=== PATIENT | male | born 1940 | race Two or more races ===

== ENCOUNTER 2018-03-20 17:51 | Emergency (ER) | payer MEDICAID, MEDICARE ==
--- NOTE | 2018-03-20 18:18 | ED ---
Dizziness - HPI Summary HPI Summary: This is Denise loja, documenting for attending Hill Price MD. 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 He reports recent increasing in weakness and fatigue. Patient reports anxiety and frequent urination last evening that is currently resolved. Patient reports similar symptoms with previous bladder infections. I, Dr. Price personally performed the services described in this documentation as scribed in my presence and it is both accurate and complete. - History Of Current Complaint Chief Complaint: EDGeneral Stated Complaint: LETHARGIC Time Seen by Provider: 03/20/18 17:58 Hx Obtained From: Patient, EMS Timing: Minutes Character: Dizzy Associated Signs And Symptoms: Positive: Other: - fatigue, weakness, frquent urination - Allergies/Home Medications Allergies/Adverse Reactions: Allergies Allergy/AdvReac Type Severity Reaction Status Date / Time MS Atorvastatin Allergy Intermediate Flushing Verified 03/20/18 20:03 [Atorvastatin] PMH/Surg Hx/FS Hx/Imm Hx Cardiovascular History: Reports: Hx Coronary Artery Disease, Hx Hypercholesterolemia, Hx Myocardial Infarction Denies: Hx Pacemaker/ICD GI History: Reports: Other GI Disorders - peptic ulcer disease History: Reports: Hx Benign Prostatic Hyperplasia Sensory History: Reports: Hx Contacts or Glasses Denies: Hx Hearing Aid Opthamlomology History: Reports: Hx Contacts or Glasses Psychiatric History: Denies: Hx Panic Disorder - Surgical History Surgery Procedure, Year, and Place: IN WITH STENT. MULTIPLE HERNIA REPAIRS, l side rib repair, r femur rodding Infectious Disease History: No Infectious Disease History: Denies: Traveled Outside the [place] in Last 30 Days - Family History Known Family History: Positive: Hypertension - Social History Alcohol Use: None Substance Use Type: Reports: None Smoking Status (MU): Never Smoked Tobacco Review of Systems Positive: Fatigue. Negative: Fever, Chills Negative: Erythema Negative: Sore Throat Negative: Chest Pain Negative: Shortness Of Breath, Cough Negative: Abdominal Pain, Vomiting, Diarrhea, Nausea Positive: frequency. Negative: dysuria, hematuria Negative: Myalgia, Edema Negative: Rash Neurological: Other - dizziness All Other Systems Reviewed And Are Negative: Yes Physical Exam Triage Information Reviewed: Yes Vital Signs On Initial Exam: Initial Vitals Temp Pulse Resp BP Pulse Ox 98.6 F 80 18 180/98 98 03/20/18 17:59 03/20/18 17:59 03/20/18 17:59 03/20/18 17:59 03/20/18 17:59 Vital Signs Reviewed: Yes Diagnostics - Vital Signs Vital Signs Temp Pulse Resp BP Pulse Ox 03/20/18 17:59 98.6 F 80 18 180/98 98 - Laboratory Result Diagrams: 03/20/18 18:37 03/20/18 18:37 Lab Statement: Any lab studies that have been ordered have been reviewed, and results considered in the medical decision making process. - Radiology CXR Radiology Interpretation Completed By: Radiologist - No evidence for acute intrathoracic disease. ED Physician has reviewed this report. Discharge - Sign-Out/Discharge Documenting (check all that apply): Patient Departure - Discharge Plan Condition: Stable Disposition: HOME Prescriptions: Cephalexin CAP* [Keflex CAP*] 500 mg PO QID #28 cap Patient Education Materials: Urinary Retention in Men (ED) Referrals: Vijay Earl MD [Medical Doctor] - 3 Days Thaddeus Acuna MD [Primary Care Provider] - 2 Days Additional Instructions: RETURN TO THE EMERGENCY DEPARTMENT FOR CHANGING OR WORSENING SYMPTOMS.
[2018-03-20 18:48] LABS: ABS Basophils 0.1 10^3/ul (0-0.2); ABS Eosinophils 0 10^3/ul (0-0.6); ABS Lymphocytes 0.5 10^3/ul (1.0-4.8); ABS Monocytes 0.5 10^3/ul (0-0.8); ABS Neutrophils 4.5 10^3/ul (1.5-7.7); ABS Nucleated RBC 0 10^3/ul; Eosinophil % 0 % (0-6); Hematocrit 49 % (42-52); Hemoglobin 17.3 g/dl (14.0-18.0); Lymphocyte % 9.6 % (25-47); Mean Corpuscular HGB Conc 35 g/dl (31-36); Mean Corpuscular Hemoglobin 34 pg (27-31); Mean Corpuscular Volume 96 fL (80-94); Mean Platelet Volume 7.2 um3 (7.4-10.4); Nucleated Red Blood Cells % 0; Platelet Count 210 10^3/ul (150-450); Red Blood Count 5.13 10^6/ul (4.00-5.40); Red Cell Distribution Width 14 % (10.5-15); White Blood Count 5.6 10^3/ul (3.5-10.8)
[2018-03-20 18:49] LABS: Urine Appearance Clear; Urine Blood 2+ (Negative); Urine Color Straw; Urine Ketones Negative (Negative); Urine Protein Negative (Negative); Urine Red Blood Cell 3+(>10/hpf) (Absent); Urine Specific Gravity 1.006 (1.010-1.030); Urine Urobilinogen Negative (Negative); Urine White Blood Cell Trace(0-5/hpf) (Absent)
[2018-03-20 18:56] LABS: INR 0.97 (0.77-1.02)
--- NOTE | 2018-03-20 19:00 | RAD ---
Indication: Increased weakness lethargy over the past few weeks. Sepsis. Comparison: November 07, 2014 Technique: Upright AP 1832 hours Report: The extreme of the LEFT costophrenic angle is incompletely included in the [id number]. No focal pulmonary lesion, compelling alveolar consolidation, pleural effusion, pneumothorax. The heart, pulmonary vasculature, and mediastinal contours are unremarkable. Negative for free air under the diaphragm. IMPRESSION: #. No evidence for acute intrathoracic disease.
[2018-03-20 20:18] LABS: EGFR Non-African American 76.5 (>60)
[2018-03-20] MEDS ORDERED: Acetaminophen TAB* 325 MG PO ONE (20:44)
[2018-03-20] MEDS ORDERED: Cephalexin CAP* 500 MG PO ONE (20:44)
--- NOTE | 2018-03-20 21:27 | ED ---
Back Pain - HPI Summary HPI Summary: This is Denise loja, documenting for attending Hill Price MD. This patient is a 77 year old M BIBA to [facility] with a chief complaint of back pain and was unable to stand. He reports recent increasing in weakness and fatigue. Patient reports anxiety, urinary incontinence, and frequent urination last evening that is currently resolved. Patient reports similar symptoms with previous bladder infections. I, Dr. Price personally performed the services described in this documentation as scribed in my presence and it is both accurate and complete. - History of Current Complaint Chief Complaint: EDGeneral Stated Complaint: LETHARGIC Time Seen by Provider: 03/20/18 17:58 Hx Obtained From: Patient, EMS Onset/Duration: Lasting Hours Timing: Constant Pain Intensity: 0 Aggravating Symptom(s): Movement Associated Signs And Symptoms: Positive: Bladder Incontinence - urgency and frequency - Allergies/Home Medications Allergies/Adverse Reactions: Allergies Allergy/AdvReac Type Severity Reaction Status Date / Time MS Atorvastatin Allergy Intermediate Flushing Verified 03/20/18 20:03 [Atorvastatin] PMH/Surg Hx/FS Hx/Imm Hx Cardiovascular History: Reports: Hx Coronary Artery Disease, Hx Hypercholesterolemia, Hx Myocardial Infarction Denies: Hx Pacemaker/ICD GI History: Reports: Other GI Disorders - peptic ulcer disease History: Reports: Hx Benign Prostatic Hyperplasia Sensory History: Reports: Hx Contacts or Glasses Denies: Hx Hearing Aid Opthamlomology History: Reports: Hx Contacts or Glasses Psychiatric History: Denies: Hx Panic Disorder - Surgical History Surgery Procedure, Year, and Place: IN WITH STENT. MULTIPLE HERNIA REPAIRS, l side rib repair, r femur rodding Infectious Disease History: No Infectious Disease History: Denies: Traveled Outside the [place] in Last 30 Days - Family History Known Family History: Positive: Hypertension - Social History Alcohol Use: None Substance Use Type: Reports: None Smoking Status (MU): Never Smoked Tobacco Review of Systems Positive: Fatigue. Negative: Fever, Chills Negative: Erythema Negative: Sore Throat Negative: Chest Pain Negative: Shortness Of Breath, Cough Negative: Abdominal Pain, Vomiting, Diarrhea, Nausea Positive: frequency. Negative: dysuria, hematuria Positive: Myalgia. Negative: Edema Negative: Rash Neurological: Negative - dizziness All Other Systems Reviewed And Are Negative: Yes Physical Exam - Summary Physical Exam Summary: Constitutional: Well-developed, Well-nourished, Alert. (-) Distressed, smells of foul urine Skin: Warm, Dry HENT: Normocephalic; Atraumatic Eyes: Conjunctiva normal Neck: Musculoskeletal ROM normal neck. (-) JVD, (-) Stridor, (-) Tracheal deviation Cardio: Rhythm regular, rate normal, Heart sounds normal; Intact distal pulses; The pedal pulses are 2+ and symmetric. Radial pulses are 2+ and symmetric. (-) Murmur Pulmonary/Chest wall: Effort normal. (-) Respiratory distress, (-) Wheezes, (-) Rales Abd: Soft, (-) epigastric tenderness, (-) Distension, (-) Guarding, (-) Rebound Musculoskeletal: (-) Edema Lymph: (-) Cervical adenopathy Neuro: Alert, Oriented x3 Psych: Mood and affect Normal Triage Information Reviewed: Yes Vital Signs On Initial Exam: Initial Vitals Temp Pulse Resp BP Pulse Ox 98.6 F 80 18 180/98 98 03/20/18 17:59 03/20/18 17:59 03/20/18 17:59 03/20/18 17:59 03/20/18 17:59 Vital Signs Reviewed: Yes Diagnostics - Vital Signs Vital Signs Temp Pulse Resp BP Pulse Ox 03/20/18 19:50 99.4 F 03/20/18 19:22 90 96 03/20/18 19:20 89 162/99 96 03/20/18 18:22 99 03/20/18 17:59 98.6 F 80 18 180/98 98 - Laboratory Lab Results: Lab Results 03/20/18 03/20/18 03/20/18 Range/Units 18:36 18:37 18:37 WBC 5.6 (3.5-10.8) 10^3/ul RBC 5.13 (4.00-5.40) 10^6/ul Hgb 17.3 (14.0-18.0) g/dl Hct 49 (42-52) % MCV 96 H (80-94) fL MCH 34 H (27-31) pg MCHC 35 (31-36) g/dl RDW 14 (10.5-15) % Plt Count 210 (150-450) 10^3/ul MPV 7.2 L (7.4-10.4) um3 Neut % (Auto) 80.3 (38-83) % Lymph % (Auto) 9.6 L (25-47) % [place] % (Auto) 9.0 H (0-7) % Eos % (Auto) 0 (0-6) % Baso % (Auto) 1.1 (0-2) % Absolute Neuts (auto) 4.5 (1.5-7.7) 10^3/ul Absolute Lymphs (auto) 0.5 L (1.0-4.8) 10^3/ul Absolute Monos (auto) 0.5 (0-0.8) 10^3/ul Absolute Eos (auto) 0 (0-0.6) 10^3/ul Absolute Basos (auto) 0.1 (0-0.2) 10^3/ul Absolute Nucleated RBC 0 10^3/ul Nucleated RBC % 0 INR (Anticoag Therapy) 0.97 (0.77-1.02) APTT 33.6 (26.0-36.3) seconds Sodium (135-145) mmol/L Potassium (3.5-5.0) mmol/L Chloride (101-111) mmol/L Carbon Dioxide (22-32) mmol/L Anion Gap (2-11) mmol/L BUN (6-24) mg/dL Creatinine (0.67-1.17) mg/dL Est GFR ( Amer) (>60) Est GFR (Non-Af Amer) (>60) BUN/Creatinine Ratio (8-20) Glucose (70-100) mg/dL Lactic Acid (0.5-2.0) mmol/L Calcium (8.6-10.3) mg/dL Total Bilirubin (0.2-1.0) mg/dL AST (13-39) U/L ALT (7-52) U/L Alkaline Phosphatase (34-104) U/L Troponin I (<0.04) ng/mL Total Protein (6.4-8.9) g/dL Albumin (3.2-5.2) g/dL Globulin (2-4) g/dL Albumin/Globulin Ratio (1-3) Urine Color Straw Urine Appearance Clear Urine pH 7.0 (5-9) Ur Specific [place] 1.006 L (1.010-1.030) Urine Protein Negative (Negative) Urine Ketones Negative (Negative) Urine Blood 2+ A (Negative) Urine Nitrate Negative (Negative) Urine Bilirubin Negative (Negative) Urine Urobilinogen Negative (Negative) Ur Leukocyte Esterase Trace A (Negative) Urine WBC (Auto) Trace(0-5/hpf) (Absent) Urine RBC (Auto) 3+(>10/hpf) A (Absent) Ur Squamous Epith Cells Present A (Absent) Urine Bacteria Absent (Absent) Urine Glucose Negative (Negative) 03/20/18 03/20/18 Range/Units 18:37 18:37 WBC (3.5-10.8) 10^3/ul RBC (4.00-5.40) 10^6/ul Hgb (14.0-18.0) g/dl Hct (42-52) % MCV (80-94) fL MCH (27-31) pg MCHC (31-36) g/dl RDW (10.5-15) % Plt Count (150-450) 10^3/ul MPV (7.4-10.4) um3 Neut % (Auto) (38-83) % Lymph % (Auto) (25-47) % [place] % (Auto) (0-7) % Eos % (Auto) (0-6) % Baso % (Auto) (0-2) % Absolute Neuts (auto) (1.5-7.7) 10^3/ul Absolute Lymphs (auto) (1.0-4.8) 10^3/ul Absolute Monos (auto) (0-0.8) 10^3/ul Absolute Eos (auto) (0-0.6) 10^3/ul Absolute Basos (auto) (0-0.2) 10^3/ul Absolute Nucleated RBC 10^3/ul Nucleated RBC % INR (Anticoag Therapy) (0.77-1.02) APTT (26.0-36.3) seconds Sodium 137 (135-145) mmol/L Potassium 4.0 (3.5-5.0) mmol/L Chloride 101 (101-111) mmol/L Carbon Dioxide 24 (22-32) mmol/L Anion Gap 12 H (2-11) mmol/L BUN 12 (6-24) mg/dL Creatinine 0.95 (0.67-1.17) mg/dL Est GFR ( Amer) 92.5 (>60) Est GFR (Non-Af Amer) 76.5 (>60) BUN/Creatinine Ratio 12.6 (8-20) Glucose 132 H (70-100) mg/dL Lactic Acid 1.3 (0.5-2.0) mmol/L Calcium 10.0 (8.6-10.3) mg/dL Total Bilirubin 2.60 H (0.2-1.0) mg/dL AST 17 (13-39) U/L ALT 17 (7-52) U/L Alkaline Phosphatase 102 (34-104) U/L Troponin I 0.01 (<0.04) ng/mL Total Protein 8.2 (6.4-8.9) g/dL Albumin 4.9 (3.2-5.2) g/dL Globulin 3.3 (2-4) g/dL Albumin/Globulin Ratio 1.5 (1-3) Urine Color Urine Appearance Urine pH (5-9) Ur Specific [place] (1.010-1.030) Urine Protein (Negative) Urine Ketones (Negative) Urine Blood (Negative) Urine Nitrate (Negative) Urine Bilirubin (Negative) Urine Urobilinogen (Negative) Ur Leukocyte Esterase (Negative) Urine WBC (Auto) (Absent) Urine RBC (Auto) (Absent) Ur Squamous Epith Cells (Absent) Urine Bacteria (Absent) Urine Glucose (Negative) Result Diagrams: 03/20/18 18:37 03/20/18 18:37 Lab Statement: Any lab studies that have been ordered have been reviewed, and results considered in the medical decision making process. - Radiology CXR Radiology Interpretation Completed By: Radiologist - No evidence for acute intrathoracic disease. ED Physician has reviewed this report. Back Pain Course/Dx - Course Course Of Treatment: 77 year old M BIBA to [facility] with a chief complaint of back pain and was unable to stand. He reports recent increasing in weakness and fatigue. Patient reports anxiety, urinary incontinence, and frequent urination last evening that is currently resolved. Patient reports similar symptoms with previous bladder infections. A bladder scan was completed revealing over 700cc of urine. UA is indicative of a UTI. Bloodwork is unremarkable. Patient is given Keflex and Tylenol. Patient will be dishcharged with a Rx for Keflex and is instructed to follow up with Dr. Earl. - Diagnoses Provider Diagnoses: Urinary retention Discharge - Discharge Plan Condition: Stable Disposition: HOME Prescriptions: Cephalexin CAP* [Keflex CAP*] 500 mg PO QID #28 cap Cephalexin CAP* [Keflex CAP*] 500 mg PO QID #28 cap Patient Education Materials: Urinary Retention in Men (ED) Referrals: Thaddeus Acuna MD [Primary Care Provider] - 2 Days Vijay Earl MD [Medical Doctor] - 3 Days Additional Instructions: RETURN TO THE EMERGENCY DEPARTMENT FOR CHANGING OR WORSENING SYMPTOMS.
[2018-03-20 22:01] VITALS: BP 163/108
== END 2018-03-20 21:59 | disposition home or self-care (01) ==
LOC: ED 17:51
DX: R33.9 Retention of urine, unspecified (principal); R53.83 Other fatigue; F41.9 Anxiety disorder, unspecified; Z95.5 Presence of coronary angioplasty implant and graft; Z88.8 Allergy status to other drugs, medicaments and biological substances; Z82.49 Family history of ischemic heart disease and other diseases of the circulatory system
CPT/HCPCS: 36415; 71045; 80053; 81003; 81015; 83605; 84484; 85025; 85610; 85730; 87040; 87086; 99283; A9270-GY

== ENCOUNTER → 2018-05-04 12:45 | Emergency (ER) | payer MEDICARE ==
[~2018-05-04 12:45] MED LIST: Cephalexin CAP* 500 MG PO ONE
--- NOTE | 2018-05-04 12:58 | ED ---
GI/ HPI - HPI Summary HPI Summary: An 78 y/o M presents to ED for hematuria first noticed this AM before breakfast. Pt uses a catheter for enlarged prostate and urinary retention. He says the tip of the catheter was outside of the urethra by 12-15 inches. Pt states he didnt intentionally pull it out. This current catheter was placed at the beginning of April, and is supposed to be removed in a week, and they were going to see if he could continue without it. He says he saw "4in blood clots." Associated sx: head of penis is mildly pain. Denies any other pain. No ETOH, no recreational drugs. He lives at [place]. Sees Dr. Earl, urology. - History of Current Complaint Chief Complaint: EDUrogenitalProblems Time Seen by Provider: 05/04/18 12:52 Stated Complaint: CATH PROBLEM Hx Obtained From: Patient Onset/Duration: Started Hours Ago, Still Present Timing: Constant Severity: Mild Current Severity: Mild Pain Intensity: 2 Additional Locations for Males: Penis - head Associated Signs and Symptoms: Positive: Hematuria, Other: - pos: mild pain at head of penis - Allergy/Home Medications Allergies/Adverse Reactions: Allergies Allergy/AdvReac Type Severity Reaction Status Date / Time atorvastatin Allergy Flushing Verified 05/04/18 12:52 PMH/Surg Hx/FS Hx/Imm Hx Previously Healthy: No Cardiovascular History: Reports: Hx Coronary Artery Disease, Hx Hypercholesterolemia, Hx Myocardial Infarction Denies: Hx Pacemaker/ICD GI History: Reports: Other GI Disorders - peptic ulcer disease History: Reports: Hx Benign Prostatic Hyperplasia Sensory History: Reports: Hx Contacts or Glasses Denies: Hx Hearing Aid Opthamlomology History: Reports: Hx Contacts or Glasses Psychiatric History: Denies: Hx Panic Disorder - Surgical History Surgery Procedure, Year, and Place: PA WITH STENT. MULTIPLE HERNIA REPAIRS, l side rib repair, r femur rodding Infectious Disease History: No Infectious Disease History: Denies: Traveled Outside the [place] in Last 30 Days - Family History Known Family History: Positive: Hypertension - Social History Occupation: Retired Lives: [facility] Alcohol Use: None Substance Use Type: Reports: None Smoking Status (MU): Never Smoked Tobacco Review of Systems Negative: Fever Positive: hematuria, other - pos: pain at head of penis Positive: Other - denies other pain All Other Systems Reviewed And Are Negative: Yes Physical Exam - Summary Physical Exam Summary: GENERAL: Patient is a well-developed and nourished M who is lying comfortable in the stretcher. Patient is not in any acute respiratory distress. HEAD AND FACE: Normocephalic EYES: PERRLA, EOMI x 2. EARS: Hearing grossly intact. MOUTH: Oropharynx within normal limits. NECK: Supple, trachea is midline, no adenopathy, no JVD, no carotid bruit. CHEST: Symmetric, no tenderness at palpation LUNGS: Clear to auscultation bilaterally. No wheezing or crackles. CVS: Regular rate and rhythm, S1 and S2 present, no murmurs or gallops appreciated. ABDOMEN: Soft, non-tender. Bowel sounds are normal. No abdominal abnormal pulsations. EXTREMITIES: Full ROM in all major joints, no edema, no cyanosis or clubbing. NEURO: Alert and oriented x 3. No acute neurological deficits. Speech is normal and follows commands. SKIN: Dry and warm GENITAL: Dried blood from penile meatus, no active bleeding. Triage Information Reviewed: Yes Vital Signs On Initial Exam: Initial Vitals Temp Pulse Resp BP Pulse Ox 97 F 77 16 107/79 100 05/04/18 12:53 05/04/18 12:53 05/04/18 12:53 05/04/18 12:53 05/04/18 12:53 Vital Signs Reviewed: Yes Diagnostics - Vital Signs Vital Signs Temp Pulse Resp BP Pulse Ox 05/04/18 12:53 97 F 77 16 107/79 100 - Laboratory Result Diagrams: 05/04/18 13:32 05/04/18 13:32 Lab Statement: Any lab studies that have been ordered have been reviewed, and results considered in the medical decision making process. Re-Evaluation - Re-Evaluation 1 Re-Evaluation Time: 16:11 Change: Improved Comment: Pt's oropeza is placed. Discussed UA results with pt. Discussed plan to dispo pt. Pt voiced understanding. GIGU Course/Dx - Course Course Of Treatment: An 78 y/o M presents to ED for hematuria first noticed this AM in his oropeza cath. Contact Dr. Earl uro, who requested the cath be replaced and the pt follow up as scheduled with him. Placed 18 latvian oropeza cath. UA results show UTI, including 1+ bacteria, yeast, 3+ WBC, 3+ RBC, blood, and protein. The patient will be discharged. I discussed results with patient and he reports feeling better. He is hemodynamically stable and safe for discharge. Strict return precautions given and he will otherwise follow up with his PCP and Dr. Earl, urology, as scheduled. Pt was instructed to keep his appt with urology. - Diagnoses Provider Diagnoses: UTI (urinary tract infection), Oropeza catheter problem - Physician Notifications Discussed Care Of Patient With: Vijay Earl - uro Time Discussed With Above Provider: 13:33 Instructed by Provider To: Other - Replace oropeza, and f/u as planned. Discharge - Sign-Out/Discharge Documenting (check all that apply): Patient Departure - DC - Discharge Plan Condition: Stable Disposition: HOME Prescriptions: Cephalexin CAP* [Keflex CAP*] 500 mg PO QID #14 cap Patient Education Materials: Cephalexin (By mouth), Urinary Tract Infection in Men (ED), Oropeza Catheter Placement and Care (ED) Referrals: Thaddeus Acuna MD [Primary Care Provider] - Additional Instructions: Please return to the ED if you experience new or worsening symptoms. - Billing Disposition and Condition Condition: STABLE Disposition: Home - Attestation Statements Document Initiated by Dorieibe: Yes Documenting Scribe: Eduardo Villavicencio Provider For Whom [facility] is Documenting (Include Credential): Dr. Lorene Ramirez MD Scribe Attestation: I, dEuardo Villavicencio, scribed for Dr. Lorene Ramirez MD on 05/05/18 at 0748. Scribe Documentation Reviewed: Yes Provider Attestation: The documentation as recorded by the Eduardo loja accurately reflects the service I personally performed and the decisions made by me, Dr. Lorene Ramirez MD
[2018-05-04 13:41] LABS: ABS Basophils 0.1 10^3/ul (0-0.2); ABS Eosinophils 0.1 10^3/ul (0-0.6); ABS Lymphocytes 1.5 10^3/ul (1.0-4.8); ABS Monocytes 0.5 10^3/ul (0-0.8); ABS Neutrophils 6.2 10^3/ul (1.5-7.7); ABS Nucleated RBC 0 10^3/ul; Eosinophil % 1.2 % (0-6); Hematocrit 43 % (42-52); Hemoglobin 14.7 g/dl (14.0-18.0); Lymphocyte % 18.5 % (25-47); Mean Corpuscular HGB Conc 35 g/dl (31-36); Mean Corpuscular Hemoglobin 34 pg (27-31); Mean Corpuscular Volume 98 fL (80-94); Nucleated Red Blood Cells % 0; Platelet Count 266 10^3/ul (150-450); Red Blood Count 4.32 10^6/ul (4.00-5.40); Red Cell Distribution Width 14 % (10.5-15); White Blood Count 8.4 10^3/ul (3.5-10.8)
[2018-05-04 13:50] LABS: INR 0.98 (0.77-1.02)
[2018-05-04 13:57] LABS: EGFR Non-African American 76.3 (>60)
[2018-05-04 15:27] LABS: Urine Appearance Cloudy; Urine Blood 3+ (Negative); Urine Color Amber; Urine Ketones Negative (Negative); Urine Protein 2+(100 mg/dL) (Negative); Urine Red Blood Cell 3+(>10/hpf) (Absent); Urine Specific Gravity 1.023 (1.010-1.030); Urine Urobilinogen Negative (Negative); Urine White Blood Cell 3+(>20/hpf) (Absent)
[2018-05-04 18:01] VITALS: BP 152/104
== END | disposition home or self-care (01) ==
LOC: ED 12:45
DX: N39.0 Urinary tract infection, site not specified (principal); I25.10 Atherosclerotic heart disease of native coronary artery without angina pectoris; E78.00 Pure hypercholesterolemia, unspecified; I25.2 Old myocardial infarction; R33.9 Retention of urine, unspecified; N40.0 Benign prostatic hyperplasia without lower urinary tract symptoms; T83.83XA Hemorrhage due to genitourinary prosthetic devices, implants and grafts, initial encounter; Y84.6 Urinary catheterization as the cause of abnormal reaction of the patient, or of later complication, without mention of misadventure at the time of the procedure; Y92.9 Unspecified place or not applicable
CPT/HCPCS: 36415; 51702; 80053; 81003; 81015; 85025; 85610; 85730; 87086; 87106; 99283; A9270-GY